=== PATIENT | male | born 1975 ===

== ENCOUNTER 2017-06-20 13:09 | Inpatient (IN) ==
[2017-06-20] MEDS ORDERED: KETOROLAC 30 MG/1 ML VIAL IV STA (13:40)
[2017-06-20] MEDS ORDERED: VANCOMYCIN INJ 1,000 MG in SODIUM CHLORIDE 0.9% 250 ML IV STA (13:40)
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
[2017-06-20] MEDS ORDERED: VANCOMYCIN 1,000 MG VIAL ONE (14:21)
[2017-06-20] MEDS ORDERED: KETOROLAC 30 MG/1 ML VIAL ONE (14:21)
[2017-06-20 14:32] LABS: Basophils % 0.1 % (0.0-0.8); Eosinophils % 0.1 % (0.00-10.9); Hemoglobin 17.2 GM/DL (14.0-18.0); Immature Granulocytes % 0.3 %; Immature Granulocytes Absolute 0.03 #; Lymphocytes # 0.6 10*3/uL (1.4-4.0); Mean Corpuscular HGB Conc 37.1 GM/DL (32-36); Mean Corpuscular Hemoglobin 34 PG (27-34); Mean Corpuscular Volume 91.9 FL (87-102); Mean Platelet Volume 11.6 FL (9.6-12.0); Monocytes # 0.7 10*3/uL (0.11-0.8); Monocytes % 7.3 % (1.7-12.7); Neutrophils # 7.9 10*3/uL (1.4-7.4); Neutrophils % 86.2 % (38.7-73.9); Platelet Count 104 T/CUMM (130-400); Red Blood Count 5.04 MC/CUMM (3.8-5.5); Red Cell Distribution Width 11.9 % (9.3-17.3); White Blood Count 9.2 T/CUMM (4-12)
[2017-06-20 14:36] LABS: Hematocrit 46.3 VOL% (42.0-52.0)
[2017-06-20 14:38] LABS: Calcium 9.1 MG/DL (8.5-10.1); Osmolality,Calculated 276.2 MOS/KG (273-304); Potassium 3.5 MMOL/L (3.5-5.1)
[2017-06-20 14:50] LABS: PT Patient Result 10.7 SECS; Partial Thromboplastin Time 26.7 SECS (0-40)
[2017-06-20] MEDS ORDERED: DOCUSATE SODIUM 100 MG CAPSULE PO PRN (15:04)
[2017-06-20] MEDS ORDERED: diphenhydrAMINE CAP 25 MG CAPSULE PO PRN (15:04)
[2017-06-20] MEDS ORDERED: NICOTINE 21 MG/24 HR PATCH TRANSDERM PRN (15:04)
[2017-06-20] MEDS ORDERED: ACETAMINOPHEN 325 MG TABLET PO PRN ×2 (15:04)
[2017-06-20] MEDS ORDERED: PROMETHAZINE 25 MG/1 ML VIAL IM PRN (15:04)
[2017-06-20] MEDS ORDERED: HYDROmorphone 2 MG/1 ML VIAL IV PRN ×2 (15:04)
[2017-06-20] MEDS ORDERED: guaiFENesin/DM ER 600-30 MG TABLET PO PRN (15:04)
[2017-06-20] MEDS ORDERED: ONDANSETRON 4 MG/2 ML VIAL IV PRN (15:04)
[2017-06-20] MEDS ORDERED: GLUCAGON 1 MG VIAL IM PRN (15:13)
[2017-06-20] MEDS ORDERED: DEXTROSE 50% 25 GM/50 ML SYRINGE IV PRN (15:13)
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
[2017-06-20] MEDS ORDERED: PIPERACILLIN/TAZOBACTAM 3,375 MG in SODIUM CHLORIDE 0.9% 100 ML IV SCH (15:30)
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
[2017-06-20] MEDS: PANTOPRAZOLE 40 MG TABLET PO SCH (17:13)
[2017-06-20] MEDS: METOPROLOL TARTRATE 25 MG TABLET PO SCH (17:13)
[2017-06-20] MEDS: INSULIN LISPRO 100 UNIT/ML SUBCUT SCH (17:36)
[2017-06-20] MEDS: SODIUM CHLORIDE 0.9% 1,000 ML IV SCH (17:36)
[2017-06-20] MEDS: PIPERACILLIN/TAZOBACTAM 3,375 MG in SODIUM CHLORIDE 0.9% 100 ML IV SCH (17:36)
[2017-06-21] MEDS: PIPERACILLIN/TAZOBACTAM 3,375 MG in SODIUM CHLORIDE 0.9% 100 ML IV SCH ×3 (00:19→15:30)
[2017-06-21 03:52] LABS: Basophils % 0.2 % (0.0-0.8); Eosinophils # 0.1 10*3/uL (0.0-0.87); Eosinophils % 0.6 % (0.00-10.9); Hematocrit 40.4 VOL% (42.0-52.0); Hemoglobin 14.8 GM/DL (14.0-18.0); Immature Granulocytes % 0.2 %; Immature Granulocytes Absolute 0.02 #; Lymphocytes # 1.6 10*3/uL (1.4-4.0); Lymphocytes % 18.8 % (21.2-54.2); Mean Corpuscular HGB Conc 36.6 GM/DL (32-36); Mean Corpuscular Hemoglobin 34 PG (27-34); Mean Corpuscular Volume 92.4 FL (87-102); Mean Platelet Volume 11.5 FL (9.6-12.0); Monocytes # 0.9 10*3/uL (0.11-0.8); Monocytes % 10.8 % (1.7-12.7); Neutrophils % 69.4 % (38.7-73.9); Platelet Count 110 T/CUMM (130-400); Red Blood Count 4.37 MC/CUMM (3.8-5.5); Red Cell Distribution Width 11.8 % (9.3-17.3); White Blood Count 8.6 T/CUMM (4-12)
[2017-06-21 04:21] LABS: Calcium 8.2 MG/DL (8.5-10.1); Osmolality,Calculated 275.8 MOS/KG (273-304); Potassium 3.2 MMOL/L (3.5-5.1)
[2017-06-21] MEDS: SODIUM CHLORIDE 0.9% 1,000 ML IV SCH ×2 (07:02→08:11)
[2017-06-21] MEDS ORDERED: POTASSIUM CHLORIDE 20 MEQ TABLET PO ONE (07:34)
[2017-06-21] MEDS: PANTOPRAZOLE 40 MG TABLET PO SCH (08:13)
[2017-06-21] MEDS: METOPROLOL TARTRATE 25 MG TABLET PO SCH (08:13)
--- NOTE | 2017-06-21 08:48 | Orthopedic Progress Note ---
Orthopedics - Subjective Interval history: Afebrile comfortable no increase in pain small eschar over the dorsum of middle finger started draining last night seropurulent material on gauze. Was able to milk some more of the fluid out of the wound today. This has resulted in some decompression of the dorsal swelling. Will redress and hold n.p.o. after midnight tonight if he is continuing to drain tomorrow will formally I&D the hand. May have essentially decompressed itself. He is comfortable enough to actively flex and extend all digits and there is no increased amount of swelling proximal to the wrist and none of the forearm. Exam - Constitutional Vitals: Period Temp Pulse Resp BP Sys/Mello Pulse Ox Last 24 Hr 97.4 F-99.7 F 70-103 16-20 128-161/69-114 95-100 Results - Labs CBC & BMP: 06/21/17 03:14 06/21/17 03:14 Quality Measures - VTE Contraindication to Pharmacological VTE Prophylaxis: High Risk of Bleeding
[2017-06-21] MEDS: INSULIN LISPRO 100 UNIT/ML SUBCUT SCH ×2 (09:19→16:31)
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
[2017-06-21] MEDS: LISINOPRIL 5 MG TABLET PO SCH (12:03)
[2017-06-21] MEDS: metFORMIN 500 MG TABLET PO SCH (16:08)
[2017-06-21] MEDS: POTASSIUM CHLORIDE 20 MEQ TABLET PO PRN ×3 (16:08→20:42)
[2017-06-21] MEDS ORDERED: metFORMIN 500 MG TABLET PO SCH (17:00)
[2017-06-22] MEDS: PIPERACILLIN/TAZOBACTAM 3,375 MG in SODIUM CHLORIDE 0.9% 100 ML IV SCH ×3 (00:30→15:03)
[2017-06-22] MEDS: POTASSIUM CHLORIDE 20 MEQ TABLET PO PRN (06:50)
--- NOTE | 2017-06-22 08:24 | Orthopedic Progress Note ---
Orthopedics - Subjective Interval history: Seropurulent material still draining although it is much less of discussed with him options going forward I believe he would improve more quickly if we can open this up a little more performing an I&D today likely packing it. If proceeds as expected will possibly home Friday or Friday at the latest Exam - Constitutional Vitals: Period Temp Pulse Resp BP Sys/Mello Pulse Ox Last 24 Hr 98.0 F-98.6 F 63-75 12-20 115-141/69-91 93-99 Results - Labs CBC & BMP: 06/21/17 03:14 06/22/17 02:49 Quality Measures - VTE Contraindication to Pharmacological VTE Prophylaxis: High Risk of Bleeding
[2017-06-22] MEDS: INSULIN LISPRO 100 UNIT/ML SUBCUT SCH ×2 (08:30→16:19)
[2017-06-22] MEDS: PANTOPRAZOLE 40 MG TABLET PO SCH (08:31)
[2017-06-22] MEDS: LISINOPRIL 5 MG TABLET PO SCH (08:31)
[2017-06-22] MEDS: metFORMIN 500 MG TABLET PO SCH ×2 (08:56→16:19)
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
[2017-06-22] MEDS ORDERED: GLUCAGON 1 MG VIAL IM PRN (10:32)
[2017-06-22] MEDS ORDERED: DEXTROSE 50% 25 GM/50 ML VIAL IV PRN (10:32)
--- NOTE | 2017-06-22 11:18 | Anesthesia Post-Op ---
Anesthesia Post OP - Post Ansesthetic Evaluation Patient seen in post op: Yes Resp: within normal limits CV: within normal limits Mental: within normal limits Temp: within normal limits [id number]: within normal limits Nausea and Vomiting: within normal limits Pain: within normal limits
[2017-06-22] MEDS ORDERED: SEVOFLURANE 1 UNIT/15 MINUTE INH ONE (11:23)
[2017-06-22] MEDS ORDERED: PROPOFOL 200 MG/20 ML VIAL IV ONE (11:23)
[2017-06-22] MEDS ORDERED: MIDAZOLAM 2 MG/2 ML VIAL ONE (11:23)
[2017-06-22] MEDS ORDERED: fentaNYL 100 MCG/2 ML VIAL ONE (11:23)
[2017-06-22] MEDS ORDERED: ONDANSETRON 4 MG/2 ML VIAL ONE (11:24)
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
[2017-06-23] MEDS: PIPERACILLIN/TAZOBACTAM 3,375 MG in SODIUM CHLORIDE 0.9% 100 ML IV SCH ×2 (00:44→08:53)
[2017-06-23] MEDS: metFORMIN 500 MG TABLET PO SCH (08:52)
[2017-06-23] MEDS: LISINOPRIL 5 MG TABLET PO SCH (08:52)
[2017-06-23] MEDS: PANTOPRAZOLE 40 MG TABLET PO SCH (08:52)
[2017-06-23] MEDS: INSULIN LISPRO 100 UNIT/ML SUBCUT SCH (08:53)
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
[2017-06-23 11:45] VITALS: BP 128/72
--- NOTE | 2017-06-23 12:31 | Orthopedic Progress Note ---
Orthopedics - Subjective Interval history: Packing removed this morning dressing re-change discussed with he and his family the need to change the dorsal gauze twice daily to 3 times daily also using a splint. Follow-up with me in 1 week to 10 days Exam - Constitutional Vitals: Period Temp Pulse Resp BP Sys/Mello Pulse Ox Last 24 Hr 97.4 F-98.7 F 58-68 16-20 93-136/47-92 94-98 Results - Labs CBC & BMP: 06/21/17 03:14 06/22/17 02:49 Quality Measures - VTE Contraindication to Pharmacological VTE Prophylaxis: High Risk of Bleeding Specialty Discharge - Follow Up or Referrals Follow up with: Jordi Mejia Jr., MD [Physician] -
== END 2017-06-23 14:20 | disposition home or self-care (01) | DRG 605 ==
LOC: N.EDINP 13:09 → N.ED 13:09 → SUATTDRO 14:42 → N.EDINP 15:55 → N.3E 16:11
PROVIDERS: ATTEND Family Medicine